=== PATIENT | female | born 2000 | race African-American/Black ===

== ENCOUNTER 2025-01-29 13:51 | Emergency (ER) | payer MEDICAID ==
[~2025-01-29] VITALS: Ht 175.3 cm; Wt 62.2 kg
[2025-01-29 14:19] VITALS: BP 139/61; PULSE 114; RESP 18; TEMP 98.2; O2SAT 94
--- NOTE | 2025-01-29 14:46 | ED.PDOC ---
General HPI Comments A 24 year-old male presents to the ED with a chief complaint of non radiating bilateral testicular pain. Patient states pain is associated symptoms of dysuria. Patient also notes experiencing discomfort as of X3 months ago with worsening symptoms as of X1 month ago. Patient states there is no pain at rest and otherwise denies hematuria, penile discharge, flank pain, and has no further complaints at this time. Denies fevers chills night sweats Denies nausea vomiting diarrhea Denies urgency frequency Denies history of UTI Denies blood in the urine or semen Denies recent instruments/toys and urethra Denies current tobacco use Denies family history of prostate issues Chief Complaint: Testicle Pain Time Seen by MD: 14:40 Reviewed notes: Nurses Notes, Medications, Allergies Home Meds Active Scripts Ibuprofen (Ibuprofen) 600 Mg Tab, 1 TAB PO TIDPRN PRN for 14 Days, #42 TAB 0 Refills Prov:WARNER WHITING OUTCOMES SPECIALIST 01/29/25 Information Source: Patient Mode of Arrival: Ambulatory Severity: Moderate Timing: Months (X3) Duration: Intermittent Onset: Spontaneous Symptoms: Dysuria, Other (Testicular Pain ) Location: Other (Testicular ) associated signs and symptoms: Dysuria, Other (Discomfort ) Past Medical History PAST MEDICAL HISTORY: Denies Surgical History: Denies all surgeries TELECOMMUNICATIONS MANAGER History: No Pertinent TELECOMMUNICATIONS MANAGER History Family History Family History: Reviewed,noncontributory to illness, No family hx of Cancer, No family hx of DM, No family hx of Heart yaneth, No family hx of HTN, No family hx ofKidney yaneth, No family hx of Liver yaneth, No family hx of Lung yaneth, No family hx of Stroke Social History Smoker: Non-Smoker Alcohol: Denies ETOH Use Drugs: Denies Drug Use Lives In: Home Constitutional: denies: chills, diaphoresis, fatigue, fever, malaise, sweats, weakness, others EENTM: denies: blurred vision, double vision, ear bleeding, ear discharge, ear drainage, ear pain, ear ringing, eye pain, eye redness, hearing loss, mouth pain, mouth swelling, nasal discharge, nose bleeding, nose congestion, nose pain, photophobia, tearing, throat pain, throat swelling, voice changes, others Respiratory: denies: cough, hemoptysis, orthopnea, SOB at rest, shortness of breath, SOB with excertion, stridor, wheezing, others Cardiovascular: denies: chest pain, dizzy spells, diaphoresis, Dyspnea on exertion, edema, irregular heart beat, left arm pain, lightheadedness, palpitations, PND, syncope, others Gastrointestinal: denies: abdomen distended, abdominal pain, blood streaked bowels, constipated, diarrhea, dysphagia, difficulty swallowing, hematemesis, melena, nausea, poor appetite, poor fluid intake, rectal bleeding, rectal pain, vomiting, others Genitourinary: reports: dysuria, others (Testicular Discomfort); denies: abnormal vagina bleeding, burning, dyspareunia, flank pain, frequency, hematuria, incontinence, pain, , vagina discharge, urgency Neurological: denies: dizziness, fainting, headache, left sided numbness, left sided weakness, numbness, paresthesia, pre-existing deficit, right sided numbness, right sided weakness, seizure, speech problems, tingling, tremors, we akness, others Musculoskeletal: denies: back pain, gout, joint pain, joint swelling, muscle pain, muscle stiffness, neck pain, others Integumetry: denies: bruises, change in color, change in hair/nails, dryness, laceration, lesions, lumps, rash, wounds, others Allergic/Immunocompromised: denies: Difficulty Healing, Frequent Infections, Hives, Itching, others Hematologic/Lymphatic: denies: anemia, blood clots, easy bleeding, easy bruising, swollen glands, others Endocrine: denies: excessive hunger, excessive sweating, excessive thirst, excessive urination, flushing, intolerance to cold, intolerance to heat, unexplained weight gain, unexplained weight loss, others Psychiatric: denies: anxiety, bipolar disorder, depression, hopeless, panic disorder, schizophrenia, sleepless, suicidal, others All Other Systems: Reviewed and Negative Physical Exam General Appearance: No Apparent Distress, Normal HEENT: Normal ENT Inspection, Pharynx Normal, TMs Normal Neck: Full Range of Motion, Non-Tender, Normal, Normal Inspection Respiratory: Chest Non-Tender, Lungs Clear, No Accessory Muscle Use, No Respiratory Distress, Normal Breath Sounds Cardiovascular: No Murmur, No Gallop, Regular Rate/Rhythm Breast Exam: Deferred Gastrointestinal: No Organomegaly, Non Tender, No Pulsatile Mass, Normal Bowel Sounds, Soft, Suprapubic (We will) Genitalia: Testicle (No high riding testicle noted ), Normal Pelvic: Deferred Rectal: Deferred Extremities: No calf tenderness, Normal capillary refill, Normal inspection, Normal range of motion, Non-tender, No pedal edema Musculoskeletal : Apperance: Normal Neurologic: Alert, burn out tender lace II-XII nml as Tested, No Motor Deficits, Normal Affect, Normal Mood, No Sensory Deficits Cerebellar Function: Normal Reflexes: Normal Skin: Dry, Normal Color, Warm Lymphatic: No Adenopathy Was a procedure done? Was a procedure done?: No Differential Diagnosis Kidney stone (Female): Other Penile/Scrotal: Epidiymitis, STD, UTI, Hydrocele, Testicular Torsion, Urolithiasis X-Ray, Labs, Meds, VS Vital Signs Date Time Temp Pulse Resp B/P (MAP) Pulse Ox O2 Delivery O2 Flow Rate FiO2 01/29/25 14:19 98.2 114 18 139/61 (87) 94 98.2 Lab Test 01/29/25 14:49 Range/Units Urine Color Yellow Yellow Urine Clarity Clear Clear Urine pH 5.5 5.0-9.0 Urine Specific [place] 1.024 1.001-1.035 Urine Protein Negative Negative Urine Ketones Negative Negative Urine Blood Negative Negative /uL Urine Nitrite Negative Negative Urine Bilirubin Negative Negative Urine Urobilinogen Normal Negative mg/dL Urine Leukocyte Esterase Negative Negative /uL Urine RBC 1 0 - 4 /hpf Urine Microscopic WBC 1 0-5 /HPF Urine Squamous Epithelial Cells Few <5 /hpf Urine Bacteria Few H None Seen /hpf Urine Mucus Few None Seen Urine Glucose Normal Normal mg/dL Chlamydia trachomatis (CEDRIC) Negative Negative Neisseria gonorrhoeae (CEDRIC) Negative Negative EXAM: US TESTICULAR ULTRASOUND Clinical History: Testicular pain Comparison: None TECHNIQUE: Grayscale color-flow and focus duplex Doppler also examination of the contents of the scrotum was performed. Findings: Right testis measures 3.6 x 1.5 x 2.1 cm. Right epididymal head measures 0.7 cm. No right hydrocele or varicocele. Left testis measures 3.3 x 1.5 x 3.0 cm. Left epididymal head measures 0.8 cm. 0.7 x 0.3 x 0.8 cm left epididymal cyst. No left hydrocele. There is dilatation of the left pampiniform venous plexus. Homogeneous echotexture noted in both testes without evidence of intratesticular masses. Arterial and venous flow is documented to both testes. Impression: 1. No evidence of testicular torsion or intratesticular masses. 2. No hydrocele bilaterally. 3. Left varicocele. ATED BY: REGINA SILVA DO DICTATED DATE/TIME: 01/29/251614 SIGNED BY: REGINA SILVA DO SIGNED DATE/TIME: 01/29/251614 X-Ray, Labs, Meds, VS Comment A 24 year-old male presents to the ED with a chief complaint of bilateral testicular pain. Patient arrives alert and oriented, ABC's intact, afebrile, vital signs stable, saturating well in room air Urinalysis was ordered to rule out UTI or hematuria. US ordered to r/o torsion and other pathology Diagnostic imaging ordered by me and results interpreted by radiology: Impression: 1. No evidence of testicular torsion or intratesticular masses. 2. No hydrocele bilaterally. 3. Left varicocele. On reevaluation, patient had symptomatic improvement. Patient is stable for discharge at this time. External notes reviewed. Test results and diagnostic imaging interpreted. All diagnostic findings, discharge care, education and instructions provided Follow-up with PCP in 2 to 3 days Patient verbalized understanding and agreed to treatment plan Vital signs stable, afebrile, no acute distress noted Patient ambulatory with strong steady gait Advised to return precautions for any new or worsening symptoms, return to ER immediately for re-evaluation Patient is aware that the purpose of this visit was for an acute medical emergency requiring emergent stabilization. Chronic conditions, including malignancies have not been ruled out. Patient is instructed to follow up with PCP as directed and discharge instructions for continued care and workup. If unable to arrange follow-up, patient is to return to the emergency department for reassessment. Patient (parent or legal guardian if applicable) was given verbal and written discharge instructions and acknowledges understanding. Additional MDM Review of External, Non-ED records: External records reviewed. Discussion with independent historian (EMS, family) history obtained from the patient/parents (if applicable) at bedside Chronic conditions affecting care: None Social determinants of health affecting care: None Consideration of admission (observation or admission): I considered escalation of care to admission for this patient, however given the reassuring workup, the patient is safe for outpatient management. Discussion with the Radiology: No Tests considered but not performed: Prescription medication considered but not given: Images Reviewed?: Images reviewed and evaluated by me Time of 1ST Reevaluation: 16:13 Reevaluation 1ST: Improved Patient Education/Counseling: Diagnosis, Treatment, Need For Follow Up Family Education/Counseling: Diagnosis, Treatment, Need For Follow Up SEPSIS Sepsis Screen Date sepsis recognized/suspect: Jan 29, 2025 Time Sepsis recognized/suspect: 1402 Recent Procedure: No On Antibiotic Therapy: No Respiratory Rate >20: No Heart Rate >90: Yes Temp<36 C (96.8 F) or >38.3 C: No SBP <90 or MAP <65 mmHG: No New Acute Mental Status Change: No Is the patient on CPAP, BIPAP,: No Physician Orders Testicular Ultrasound (01/29/25 14:47) Vital Signs Date Time Temp Pulse Resp B/P (MAP) Pulse Ox O2 Delivery O2 Flow Rate FiO2 01/29/25 14:19 98.2 114 18 139/61 (87) 94 98.2 Departure 1 Departure Time of Disposition: 16:33 Impression: Primary Impression: Left varicocele Disposition: 01 HOME / SELF CARE / HOMELESS Condition: Stable e-Prescriptions Ibuprofen (Ibuprofen) 600 Mg Tab 1 TAB PO TIDPRN PRN for 14 Days, #42 TAB 0 Refills Prov: WARNER WHITING NP 01/29/25 Discharged With: Self Critical Care Note Critical Care Time?: No Stability Stability form required: No Heart Score Heart Score: Heart Score Response (Comments) Value History N/A 0 EKG N/A 0 Age N/A 0 Risk Factors N/A 0 Troponin N/A 0 Total 0 I personally scribed for WARNER WHITING OUTCOMES SPECIALIST ([email or web address]) on 01/29/25 at 14:46. Electronically submitted by Darvin Steel [email or web address]). I personally scribed for WARNER WHITING NP ([place]) on 01/29/25 at 15:09. Electronically submitted by Darvin Steel ([email or web address]). I personally scribed for WARNER WHITING OUTCOMES SPECIALIST ([place]) on 01/29/25 at 15:16. Electronically submitted by Darvin Steel ([email or web address]). I personally scribed for WARNER WHITING OUTCOMES SPECIALIST ([place]) on 01/29/25 at 15:17. Electronically submitted by Darvin Steel ([email or web address]). I personally scribed for WARNER WHITING NP ([email or web address]) on 01/29/25 at 15:34. Electronically submitted by Darvin Steel ([email or web address]). I personally scribed for WARNER WHITING NP ([email or web address]) on 01/29/25 at 16:23. Electronically submitted by Darvin Steel ([email or web address]). WARNER WHITING NP Jan 29, 2025 14:46
[2025-01-29 15:19] LABS: Urine Protein, UAD Negative (Negative)
--- NOTE | 2025-01-29 16:17 | DVH ---
EXAM: US TESTICULAR ULTRASOUND Clinical History: Testicular pain Comparison: None TECHNIQUE: Grayscale color-flow and focus duplex Doppler also examination of the contents of the scro neva was performed. Findings: Right testis measures 3.6 x 1.5 x 2.1 cm. Right epididymal head measures 0.7 cm. No right hydrocele o r varicocele. Left testis measures 3.3 x 1.5 x 3.0 cm. Left epididymal head measures 0.8 cm. 0.7 x 0.3 x 0.8 cm lef t epididymal cyst. No left hydrocele. There is dilatation of the left pampiniform venous plexus. Homogeneous echotexture noted in both testes without evidence of intratesticular masses. Arterial and venous flow is documented to both testes. Impression: 1. No evidence of testicular torsion or intratesticular masses. 2. No hydrocele bilaterally. 3. Left varicocele.
[2025-01-29] MEDS ORDERED: IBUP-1454 PO (16:35)
[2025-01-30 14:07] LABS: Chlamydia Trachomatis, NAA Negative (Negative); Neisseria gonorrhoeae, NAA Negative (Negative)
== END 2025-01-29 16:47 | disposition home or self-care (01) ==
LOC: ER 13:51
DX: I86.1 Scrotal varices (principal); Z79.899 Other long term (current) drug therapy
CPT/HCPCS: 76870; 81001

== ENCOUNTER 2025-03-29 12:57 | Emergency (ER) | payer MEDICAID ==
[~2025-03-29] VITALS: Ht 175.3 cm; Wt 60.5 kg
[~2025-03-29 12:57] MED LIST: IBUP-1454 PO
--- NOTE | 2025-03-29 13:26 | ED.PDOC ---
Eye-HPI HPI Comments This is a 24 year old female presenting to the ED with chief complaint of eye redness. Patient reports that she has been experiencing red, dry spots to the left side of her face for the past month, however, they recently spread to her left eye and she now has redness and itchiness to the left eye. Patient denies any eye discharge, vision changes, photophobia, dizziness, headache, or fever. Chief Complaint: Eye Problem Time Seen by MD: 13:24 Reviewed Notes: Nurses Notes, Medications, Allergies Allergies: Coded Allergies: NO KNOWN ALLERGIES (Unverified , 03/29/25) Home Meds Active Scripts Ibuprofen (Ibuprofen) 600 Mg Tab, 1 TAB PO TIDPRN PRN for 14 Days, #42 TAB 0 Refills Prov:WARNER WHITING Hans MORALES 01/29/25 Information Source: Patient Mode of Arrival: Ambulatory Timing: Days Duration: Since onset Prehospital treatment: None Quality: Red Eye Location: Left Lids: Red Conjunctiva: Injection Onset: Spontaneous Throat Exposed to: None Past Medical History PAST MEDICAL HISTORY: Denies Surgical History: Denies all surgeries Surgical History (Other): Facial surgery NURSING TECH History: No Pertinent NURSING TECH History Family History Family History: Reviewed,noncontributory to illness, No family hx of Cancer, No family hx of DM, No family hx of Heart yaneth, No family hx of HTN, No family hx ofKidney yaenth, No family hx of Liver yaneth, No family hx of Lung yaneth, No family hx of Stroke Social History Smoker: Non-Smoker Alcohol: Occasionally Drugs: Marijuana Lives In: Home Constitutional: denies: chills, diaphoresis, fatigue, fever, malaise, sweats, weakness, others EENTM: reports: eye redness; denies: blurred vision, double vision, ear bleeding, ear discharge, ear drainage, ear pain, ear ringing, eye pain, hearing loss, mouth pain, mouth swelling, nasal discharge, nose bleeding, nose congestion, nose pain, photophobia, tearing, throat pain, throat swelling, voice changes, others Respiratory: denies: cough, hemoptysis, orthopnea, SOB at rest, shortness of breath, SOB with excertion, stridor, wheezing, others Cardiovascular: denies: chest pain, dizzy spells, diaphoresis, Dyspnea on exertion, edema, irregular heart beat, left arm pain, lightheadedness, palpitations, PND, syncope, others Gastrointestinal: denies: abdomen distended, abdominal pain, blood streaked bowels, constipated, diarrhea, dysphagia, difficulty swallowing, hematemesis, melena, nausea, poor appetite, poor fluid intake, rectal bleeding, rectal pain, vomiting, others Genitourinary: denies: abnormal vagina bleeding, burning, dyspareunia, dysuria, flank pain, frequency, hematuria, incontinence, pain, , vagina discharge, urgency, others Neurological: denies: dizziness, fainting, headache, left sided numbness, left sided weakness, numbness, paresthesia, pre-existing deficit, right sided numbness, right sided weakness, seizure, speech problems, tingling, tremors, weakness, others Musculoskeletal: denies: back pain, gout, joint pain, joint swelling, muscle pain, muscle stiffness, neck pain, others Integumetry: reports: dryness, rash; denies: bruises, change in color, change in hair/nails, laceration, lesions, lumps, wounds, others Allergic/Immunocompromised: reports: Itching; denies: Difficulty Healing, Frequent Infections, Hives, others Hematologic/Lymphatic: denies: anemia, blood clots, easy bleeding, easy bruising, swollen glands, others Endocrine: denies: excessive hunger, excessive sweating, excessive thirst, excessive urination, flushing, intolerance to cold, intolerance to heat, unexplained weight gain, unexplained weight loss, others Psychiatric: denies: anxiety, bipolar disorder, depression, hopeless, panic disorder, schizophrenia, sleepless, suicidal, others All Other Systems: Reviewed and Negative Physical Exam General Appearance: No Apparent Distress, Normal HEENT: Normal ENT Inspection, PERRL/EOMI, Pharynx Normal, TMs Normal, Other (Conjunctivitis left eye facial dermatitis) Neck: Full Range of Motion, Non-Tender, Normal, Normal Inspection Respiratory: Chest Non-Tender, Lungs Clear, No Accessory Muscle Use, No Respiratory Distress, Normal Breath Sounds Cardiovascular: No Edema, No JVD, No Murmur, No Gallop, Normal Peripheral Pulses, Regular Rate/Rhythm Breast Exam: Deferred Gastrointestinal: No Organomegaly, Non Tender, No Pulsatile Mass, Normal Bowel Sounds, Soft Genitalia: Deferred Pelvic: Deferred Rectal: Deferred Extremities: No calf tenderness, Normal capillary refill, Normal inspection, Normal range of motion, Non-tender, No pedal edema Musculoskeletal : Apperance: Normal Neurologic: Alert, hand or machine paster II-XII nml as Tested, No Motor Deficits, Normal Affect, Normal Mood, No Sensory Deficits Cerebellar Function: Normal Reflexes: Normal Skin: Dry, Normal Color, Warm Peripheral Pulses: 1+ carotid (R), 1+ carotid (L) Lymphatic: No Adenopathy Was a procedure done? Was a procedure done?: No EENT DIFF Eye: Conjunctivitis, Allergic, Bacterial, Viral Ear: N/A Nose: N/A Mouth: N/A Sore Throat: N/A X-Ray, Labs, Meds, VS Vital Signs Date Time Temp Pulse Resp B/P (MAP) Pulse Ox O2 Delivery O2 Flow Rate FiO2 03/29/25 12:59 98.5 92 18 114/79 96 98.5 X-Ray, Labs, Meds, VS Comment Course in the [employer] eventful patient came in with a acute conjunctivitis left eye and facial dermatitis on and off for the past month for the is started two days ago mostly the left Patient will be discharged home with an eye drop and also ointment for the face Time of 1ST Reevaluation: 13:40 Reevaluation 1ST: Unchanged Time of 2ND Reevaluation: 13:30 Reevaluation 2ND: Unchanged Consultation: PCP Patient Education/Counseling: Diagnosis, Treatment, Prognosis, Need For Follow Up Family Education/Counseling: Diagnosis, Treatment, Prognosis, Need For Follow Up, No Family Present SEPSIS Sepsis Screen Date sepsis recognized/suspect: Mar 29, 2025 Time Sepsis recognized/suspect: 1301 Recent Procedure: No On Antibiotic Therapy: No Respiratory Rate >20: No Heart Rate >90: No Temp<36 C (96.8 F) or >38.3 C: No SBP <90 or MAP <65 mmHG: No New Acute Mental Status Change: No Is the patient on CPAP, BIPAP,: No Vital Signs Date Time Temp Pulse Resp B/P (MAP) Pulse Ox O2 Delivery O2 Flow Rate FiO2 03/29/25 12:59 98.5 92 18 114/79 96 98.5 Departure 1 Departure Time of Disposition: 13:30 Impression: Primary Impression: Conjunctivitis, left eye Additional Impression: Facial dermatitis Disposition: HOME / SELF CARE / HOMELESS Condition: Fair Additional Instructions: Prescription as directed with your PCP e-Prescriptions Triamcinolone Acetonide (Triamcinolone Acetonide) 0.025 % Cre 1 APPLIC TOP BID for 10 Days, #30 GRAMS Prov: MARITA WESTON MD 03/29/25 [id number] (Maxitrol) 0.1 % [place] 1 DROP LEFTEYE QID for 5 Days, #5 ML Prov: MARITA WESTON MD 03/29/25 Discharged With: Self Critical Care Note Critical Care Time?: No Stability Stability form required: No Heart Score Heart Score: Heart Score Response (Comments) Value History N/A 0 EKG N/A 0 Age <45 0 Risk Factors No known risk factors 0 Troponin N/A 0 Total 0 I personally scribed for MARITA WESTON MD ([email or web address]) on 03/29/25 at 13:26. Electronically submitted by David Wood ([email or web address]). MARITA WESTON MD Mar 29, 2025 13:26
[2025-03-29] MEDS ORDERED: TRIA0.02 TOP (13:33)
[2025-03-29] MEDS ORDERED: NEOM0.1S10 LEFTEYE (13:33)
[2025-03-29 13:36] VITALS: BP 112/73; PULSE 82; RESP 16; TEMP 98.5; O2SAT 96
== END 2025-03-29 13:43 | disposition home or self-care (01) ==
LOC: ER 12:57
DX: H10.9 Unspecified conjunctivitis (principal); L30.9 Dermatitis, unspecified; F10.90 Alcohol use, unspecified, uncomplicated; F12.90 Cannabis use, unspecified, uncomplicated; Z79.899 Other long term (current) drug therapy; Y90.9 Presence of alcohol in blood, level not specified

== ENCOUNTER 2025-07-21 13:21 | Emergency (ER) | payer MEDICAID ==
[~2025-07-21] VITALS: Ht 175.3 cm; Wt 61.3 kg
[~2025-07-21 13:21] MED LIST changes: +NEOM0.1S10 LEFTEYE; +TRIA0.02 TOP
[2025-07-21] MEDS ORDERED: TRIA0.02 TOP (14:10)
--- NOTE | 2025-07-21 14:14 | ED.PDOC ---
History of Present Illness(SKN HPI Comments 24 year old female presents to the ED with a chief complaint of rash onset 1 month. Patient was seen in this ED February 2025 for similar symptoms, was prescribed Triamcinolone, improved symptoms. Patient ran out of medication, returned to ED for medication refill. No other symptoms or modifying factors present at this time. Patient denies any fever, cough, difficulty swallowing, or shortness of breath Denies fever chills night sweats nausea vomiting diarrhea Denies persistent loss of appetite nor unintentional weight loss over the past 3 months Denies history of STI Denies cough and cold-like symptoms Denies recent travel Denies sick contact with similar rash Denies noticing any insects Denies bruising bleeding anywhere Denies chronic skin issues or family history of skin issues Chief Complaint: Rash Time Seen by MD: 14:05 History of Present Illness: Medications, Allergies Allergies: Coded Allergies: NO KNOWN ALLERGIES (Unverified , 03/29/25) Home Meds Active Scripts Triamcinolone Acetonide (Triamcinolone Acetonide) 0.025 % Cre, 1 APPLIC TOP BID for 10 Days, #30 GRAMS Prov:WARNER WHITING NP 07/21/25 [id number] (Maxitrol) 0.1 % [place], 1 DROP LEFTEYE QID for 5 Days, #5 ML Prov:MARITA WESTON MD 03/29/25 Ibuprofen (Ibuprofen) 600 Mg Tab, 1 TAB PO TIDPRN PRN for 14 Days, #42 TAB 0 Refills Prov:WARNER WHITING NP 01/29/25 Information Source: Patient Mode of Arrival: Ambulatory Severity: Moderate Timing: Months Duration: Since onset Prehospital treatment: None Location: Face Past Medical History PAST MEDICAL HISTORY: Denies Surgical History: Denies all surgeries PHYSICS TUTOR History: No Pertinent PHYSICS TUTOR History Family History Family History: Reviewed,noncontributory to illness, No family hx of Cancer, No family hx of DM, No family hx of Heart yaneth, No family hx of HTN, No family hx ofKidney yaneth, No family hx of Liver yaneth, No family hx of Lung yaneth, No family hx of Stroke Social History Smoker: Non-Smoker Alcohol: Occasionally Drugs: Marijuana Lives In: Home All Other Systems: Reviewed and Negative (as per HPI) Physical Exam General Appearance: Moderate Distress, No Apparent Distress, Normal HEENT: Normal ENT Inspection, Pharynx Normal, TMs Normal Neck: Full Range of Motion, Non-Tender, Normal, Normal Inspection Respiratory: Chest Non-Tender, Lungs Clear, No Accessory Muscle Use, No Respiratory Distress, Normal Breath Sounds Cardiovascular: No Edema, No JVD, No Murmur, No Gallop, Normal Peripheral Pulses, Regular Rate/Rhythm Breast Exam: Deferred Gastrointestinal: No Organomegaly, Non Tender, No Pulsatile Mass, Normal Bowel Sounds, Soft Genitalia: Deferred Pelvic: Deferred Rectal: Deferred Extremities: No calf tenderness, Normal capillary refill, Normal inspection, Normal range of motion, Non-tender, No pedal edema Musculoskeletal : Apperance: Normal Neurologic: Alert, management architect II-XII nml as Tested, No Motor Deficits, Normal Affect, Normal Mood, No Sensory Deficits Cerebellar Function: Normal Reflexes: Normal Skin: Dry, Normal Color, Warm Lymphatic: No Adenopathy Was a procedure done? Was a procedure done?: No X-Ray, Labs, Meds, VS Vital Signs Date Time Temp Pulse Resp B/P (MAP) Pulse Ox O2 Delivery O2 Flow Rate FiO2 07/21/25 14:38 98.0 75 16 109/72 (84) 97 98.0 07/21/25 13:45 97.7 98 16 129/71 97 97.7 X-Ray, Labs, Meds, VS Comment 24 year old female presents to the ED with a chief complaint of rash onset 1 month. Patient arrives alert and oriented, ABC's intact, afebrile, vital signs stable, saturating well in room air Additional MDM Review of External, Non-ED records: External records reviewed. Discussion with independent historian (EMS, family) history obtained from the patient/parents (if applicable) at bedside Chronic conditions affecting care: None Social determinants of health affecting care: None Consideration of admission (observation or admission): I considered escalation of care to admission for this patient, however given the reassuring workup, the patient is safe for outpatient management. Time of 1ST Reevaluation: 14:35 Reevaluation 1ST: Improved Patient Education/Counseling: Diagnosis, Treatment Family Education/Counseling: No Family Present SEPSIS Sepsis Screen Date sepsis recognized/suspect: Jul 21, 2025 Time Sepsis recognized/suspect: 1348 Recent Procedure: No On Antibiotic Therapy: No Respiratory Rate >20: No Heart Rate >90: No Temp<36 C (96.8 F) or >38.3 C: No SBP <90 or MAP <65 mmHG: No New Acute Mental Status Change: No Is the patient on CPAP, BIPAP,: No Vital Signs Date Time Temp Pulse Resp B/P (MAP) Pulse Ox O2 Delivery O2 Flow Rate FiO2 07/21/25 14:38 98.0 75 16 109/72 (84) 97 98.0 07/21/25 13:45 97.7 98 16 129/71 97 97.7 Departure 1 Departure Time of Disposition: 14:10 Impression: Primary Impression: Medication refill Disposition: HOME / SELF CARE / HOMELESS Condition: Stable e-Prescriptions Triamcinolone Acetonide (Triamcinolone Acetonide) 0.025 % Cre 1 APPLIC TOP BID for 10 Days, #30 GRAMS Prov: WARNER WHITING NP 07/21/25 Discharged With: Self Critical Care Note Critical Care Time?: No Stability Stability form required: No Heart Score Heart Score: Heart Score Response (Comments) Value History N/A 0 EKG N/A 0 Age N/A 0 Risk Factors N/A 0 Troponin N/A 0 Total 0 I personally scribed for WARNER WHITING NP ([email or web address]) on 07/21/25 at 14:14. Electronically submitted by Amrita Henson ([email or web address]). WARNER WHITING NP Jul 21, 2025 14:14
[2025-07-21 14:38] VITALS: BP 109/72; PULSE 75; RESP 16; TEMP 98; O2SAT 97
== END 2025-07-21 14:40 | disposition home or self-care (01) ==
LOC: ER 13:21
DX: R21 Rash and other nonspecific skin eruption (principal); F12.90 Cannabis use, unspecified, uncomplicated; F10.90 Alcohol use, unspecified, uncomplicated; Z79.899 Other long term (current) drug therapy; Z76.0 Encounter for issue of repeat prescription